=== PATIENT | male | born 1960 | race Two or more races ===

== ENCOUNTER 2019-05-31 13:39 | Outpatient (CLI) | payer MEDICAID ==
--- NOTE | 2019-05-31 16:45 | Consultation ---
DATE OF CONSULTATION: 05/31/2019 CONSULTING PHYSICIAN: Onofre Kumar M.D. CHIEF COMPLAINT: Referral for screening colonoscopy. Also, the patient is complaining of epigastric abdominal pain, especially if he does not eat and is fasting. PAST MEDICAL HISTORY: None. PAST SURGICAL HISTORY: None. MEDICATIONS: None. ALLERGIES: No known allergies. FAMILY HISTORY: No family history of GI malignancies. SOCIAL HISTORY: The patient smokes cigarettes almost one pack per day. He denies any IV drug abuse. No alcohol abuse. REVIEW OF SYSTEMS: Positive only for epigastric abdominal pain, especially when he is hungry and he also has some acid reflux disease. PHYSICAL EXAMINATION: GENERAL: A well-developed male, in no acute distress. HEENT: Normocephalic and atraumatic. Sclerae anicteric. NECK: Supple. No no adenopathy. CARDIOVASCULAR: Regular rate and rhythm. Plus S1 and S2. No obvious murmur. LUNGS: Clear to auscultation bilaterally. ABDOMEN: Positive bowel sounds. Soft. Minimal tenderness to palpation in the epigastric area. No rebound. No guarding. No peritoneal sign. EXTREMITIES: No cyanosis, no clubbing, no edema. ASSESSMENT AND PLAN: The patient is a 58-year-old male needing screening colonoscopy, also given having chronic GERD. He is 58-year-old needs also endoscopy. Plan is to perform EGD and colonoscopy when authorization is obtained. Onofre Kumar M.D. DR: EVIE JOB#: [id number] CC:
== END 2019-05-31 15:39 | disposition home or self-care (01) ==
LOC: PAN 13:39
DX: R10.13 Epigastric pain (principal); K21.9 Gastro-esophageal reflux disease without esophagitis
CPT/HCPCS: G0463